=== PATIENT | male | born 1955 | race Caucasian/White ===

== ENCOUNTER 2016-11-19 17:07 | Emergency (ER) | payer OTHER ==
[~2016-11-19] VITALS: Ht 172.7 cm; Wt 109.3 kg
[~2016-11-19 17:07] MED LIST: ALDACTONE100 MG PO; AMITRIPTYLINE H50 M4 PO; CLONAZEPAM 1 MG1 M1 PO; CLONIDINE PO; CLONIDINE0.1 PO; DILANTIN100 MG PO; HYDROCODON-ACE1 EAC7 PO; KEPPRA 500 MG500 M1 PO; PHENOBARBITAL97.2 M2 PO; PLAVIX 75 MG TA75 MG PO; PRILOSEC 20 MG20 MG PO; PROAIR HFA8.5 GM; PROSCAR 5MG TABL5 MG PO; PROZAC 10 MG CA10 M1 PO; RISPERDAL0.25 MG PO; XANAX 1 MG TABLE1 MG PO; ZANAFLEX4 M1 PO; ZOLOFT 50 MG TA50 M1 PO; ZOLOFT100 MG PO
[2016-11-19 17:34] LABS: ABSOLUTE NEUTROPHILS 6.8 thou/uL (1.4-8.2); BASOPHILS 0.4 % (0.0-2.0); EOSINOPHILS 0.5 % (0.0-3.0); HEMATOCRIT 39.4 % (42.0-52.0); HEMOGLOBIN 13.4 gm/dL (14.0-18.0); LYMPHOCYTES 12.6 % (24.0-44.0); MCH 34.4 pg (26.0-34.0); MCHC 33.9 g/dL (28.0-37.0); MCV 101.4 fL (80.0-100.0); MONOCYTES 6.7 % (1.0-8.0); PLATELET COUNT 150 thou/uL (150-400); POLYS 79.8 % (36.0-66.0); RBC 3.89 mil/uL (4.50-6.00); RDW 14.8 % (10.5-14.5); WBC 8.6 thou/uL (4.0-11.0)
[2016-11-19 17:37] LABS: MANUAL DIFF NO
[2016-11-19 17:50] LABS: CALCIUM 8.7 mg/dL (8.5-10.1); CREATININE 0.7 mg/dL (0.7-1.3); POTASSIUM 3.7 mmol/L (3.5-5.1)
[2016-11-19] MEDS ORDERED: BACTRIM DS TAB1 EACH PO (18:19)
== END 2016-11-19 18:33 | disposition home or self-care (01) ==
LOC: ER 17:07
PROVIDERS: Physician Assistant
DX: S50.311A Abrasion of right elbow, initial encounter (principal); G45.9 Transient cerebral ischemic attack, unspecified; L03.113 Cellulitis of right upper limb; I10 Essential (primary) hypertension; K21.9 Gastro-esophageal reflux disease without esophagitis; J44.9 Chronic obstructive pulmonary disease, unspecified; Z88.6 Allergy status to analgesic agent; W19.XXXA Unspecified fall, initial encounter; Y93.89 Activity, other specified; Y92.89 Other specified places as the place of occurrence of the external cause; Y99.8 Other external cause status